=== PATIENT | male | born 1945 | race Hispanic/Latino ===

== ENCOUNTER 2018-06-03 11:01 | Outpatient (CLI) | payer MEDICARE | END 2018-06-03 11:02 | disposition home or self-care (01) | LOC: C.PAT 11:01 | DX: N28.89 Other specified disorders of kidney and ureter (principal); N40.0 Benign prostatic hyperplasia without lower urinary tract symptoms ==

== ENCOUNTER → 2018-06-08 | Day surgery (SDC) | payer MEDICARE ==
[2018-06-03 11:31] VITALS: BMI 34.4
[~2018-06-08] MED LIST: Ciprofloxacin 400mg/200ml D5W 400 MG/200 ML BAG IVPB ONE; Gentamicin 160 MG in Sodium Chloride 0.9% 100 ML IVPB ONE; Lactated Ringer's 1,000 ML IV ONE; Lidocaine 2% Jelly (Uro-Jet) ONE; Midazolam 2 MG/2 ML VIAL ONE; Propofol 10 mg/ml Inj (20 ML) ONE
--- NOTE | 2018-06-08 13:51 | PCM.SURG1 ---
Surgeon's Initial Post Op Note - Surgeon's Notes Surgeon: Bill Quote Clerk: JALEN Type of Anesthesia: General LMA Anesthesia Administered By: staff Pre-Operative Diagnosis: Urinary retention due to BPH/Bladder calculi Operative Findings: Bladder calculi BPH w KELLY Heavy bladder trabeculation Post-Operative Diagnosis: same Operation Performed: Cysto removal of calculi Specimen/Specimens Removed: small calculi Estimated Blood Loss: EBL {In ML}: 0 Blood Products Given: N/A Drains Used: No Drains Post-Op Condition: Good Date of Surgery/Procedure: 06/08/18 Time of Surgery/Procedure: 13:51
[2018-06-08 15:16] VITALS: BP 132/67; PULSE 88; RESP 18; TEMP 97; O2SAT 20
--- NOTE | 2018-06-09 07:38 | OP ---
PROCEDURE DATE: 06/08/2018 PREOPERATIVE DIAGNOSES: Acute urinary retention, post hip surgery one month with four failed voiding attempts. POSTOPERATIVE DIAGNOSES: Urinary retention secondary to benign prostatic hypertrophy with severe outlet obstruction plus 3-4 compensatory trabeculation of the bladder and multiple small bladder calculi. PROCEDURES: Cystoscopy and evacuation of small bladder calculi. DESCRIPTION OF PROCEDURE: As follows: The patient was asked to sign a detailed informed consent. He is aware of the risk, complications, and limitations of this procedure. He is aware that other procedures may be necessary. He signed the consent and was brought into the room and draped and prepped in the usual manner. He was cystoscoped with a #21 Storz panendoscope. The pendulous and membranous urethra was normal. The prostatic urethra showed a trilobar hypertrophy with significant outlet obstruction. The bladder was entered atraumatically. There was also a small median lobe. The bladder was heavily trabeculated plus 3-4 with pseudodiverticulum formation. The bladder had several small calculi. Based on these findings, it is unlikely that the patient will be successful with the fifth voiding trial. We suggest that he proceed with TURP or GreenLight laser prostatectomy. The third option is less likely to be successful in the near term as terminal carman medication with voiding trial in 6 months. Gareth Khan MD
== END | disposition home or self-care (01) ==
LOC: C.SDS 10:22
PROVIDERS: ATTEND Urology
DX: N21.0 Calculus in bladder (principal); N40.1 Benign prostatic hyperplasia with lower urinary tract symptoms; R33.8 Other retention of urine
CPT/HCPCS: 52310; 82948; 88300; J7120

== ENCOUNTER 2018-06-15 10:21 | Day surgery (SDC) | payer MEDICARE ==
[2018-06-03 11:29] VITALS: BMI 34.4
[2018-06-15] MEDS ORDERED: Propofol 10 mg/ml Inj (20 ML) ONE ×2 (12:40→14:05)
[2018-06-15] MEDS ORDERED: Midazolam 2 MG/2 ML VIAL ONE (12:40)
[2018-06-15] MEDS ORDERED: Gentamicin 80 mg in 0.9% NS 160 MG/200 ML BAG IVPB ONE (12:54)
[2018-06-15] MEDS ORDERED: Ciprofloxacin 400mg/200ml D5W 400 MG/200 ML BAG IVPB ONE (12:54)
[2018-06-15] MEDS ORDERED: Lidocaine 2% Jelly (Uro-Jet) ONE ×2 (12:54→14:01)
[2018-06-15] MEDS ORDERED: HYDROmorphone 0.5 mg/0.5 ml ISec IVP PRN ×2 (12:58→14:54)
[2018-06-15] MEDS ORDERED: Succinylcholine Chloride 20 mg/ml Syr (5 ml) IV ONE (14:01)
[2018-06-15] MEDS ORDERED: Neostigmine 1:1000 (1 mg/ml) Inj ONE (14:01)
--- NOTE | 2018-06-15 14:17 | PCM.SURG1 ---
Surgeon's Initial Post Op Note - Surgeon's Notes Surgeon: Bill Spray Drier Operator Helper: JALEN Type of Anesthesia: General Endo, General LMA Anesthesia Administered By: Staff Pre-Operative Diagnosis: BPH/urinary retention/arriaga Operative Findings: same Post-Operative Diagnosis: same Operation Performed: [place] Specimen/Specimens Removed: na Estimated Blood Loss: EBL {In ML}: 10 Blood Products Given: N/A Drains Used: No Drains Post-Op Condition: Good Date of Surgery/Procedure: 06/15/18 Time of Surgery/Procedure: 14:17
[2018-06-15 15:12] VITALS: O2SAT 100
[2018-06-15 16:15] VITALS: BP 153/83; PULSE 98; RESP 20; TEMP 98.9
--- NOTE | 2018-06-16 07:27 | OP ---
PROCEDURE DATE: 06/15/2018 PREOPERATIVE DIAGNOSES: Benign prostatic hypertrophy, bladder outlet obstruction, and urinary retention. POSTOPERATIVE DIAGNOSES: Benign prostatic hypertrophy, bladder outlet obstruction, and urinary retention. PROCEDURE: Transurethral laser ablation of the prostate (vaporization). DESCRIPTION OF PROCEDURE: The procedure is as follows. Prior to the procedure, a detailed informed consent was obtained from the patient. He is aware of the risks and limitations of this procedure including bleeding, failure to urinate, and chronic urinary retention and incontinence as well as many others. He agreed to accept the risks. He was brought into the room. A time-out was taken according to the rules and regulations of [facility]. After receiving prophylactic antibiotics and removing the indwelling Rush catheter, the patient was cystoscoped with a laser cystoscope. Previous cystoscopic findings were confirmed. The laser resectoscope element was inserted within the scope and the laser fiber within the resectoscope element. The vaporization of the prostate began just distal to the bladder neck on the right side. It was carried down to just proximal to the verumontanum. The left side, the base tissue and the root tissue were all vaporized in a similar fashion. Once complete vaporization of the obstructing tissue was completed, there was also noted to be a small median lobe which was vaporized. Minimal bleeding occurred. No injury occurred to the external sphincter or ureteral orifices. The patient had a #20 two-way 5-mL catheter inserted over the catheter. He tolerated this procedure well. Irrigant drainage was clear. He was sent to the recovery room in good condition. He will be continued on Cipro, Flomax, and Proscar. He will follow up in our office tomorrow for removal of the Rush catheter. Gareth Khan MD
== END 2018-06-15 16:18 | disposition home or self-care (01) ==
LOC: C.SDS 10:21
PROVIDERS: ATTEND Urology
DX: N40.1 Benign prostatic hyperplasia with lower urinary tract symptoms (principal); N13.8 Other obstructive and reflux uropathy; N32.0 Bladder-neck obstruction; R33.8 Other retention of urine
CPT/HCPCS: 52648; 82948; C1769; J0744; J1580